=== PATIENT | female | born 1945 | race Caucasian/White ===

== ENCOUNTER 2022-09-30 16:38 | Emergency (ER) | payer OTHER ==
[~2022-09-30] VITALS: Ht 167.6 cm; Wt 69.9 kg
[2022-09-30 16:51] VITALS: BP_SYST 144; PULSE 64; RESP 20; TEMP 98.2; O2SAT 98
[2022-09-30 17:49] LABS: BASOPHILS % (AUTO) 0.4 % (0.0-2.0); HEMATOCRIT 41.2 % (36-48); HEMOGLOBIN 13.7 g/dL (12.0-16.0); LYMPHOCYTES # (AUTO) 1.5 K/uL (1.0-5.5); LYMPHOCYTES % (AUTO) 22.2 % (20.5-51.5); MEAN CORPUSCULAR HEMOGLOBIN 31 pg (27-31); MEAN CORPUSCULAR HGB CONC 33 % (32-36); MEAN CORPUSCULAR VOLUME 94 fL (79.0-98.0); MONOCYTES # (AUTO) 0.6 K/uL (0.0-1.0); MONOCYTES % (AUTO) 8.7 % (1.7-9.3); NEUTROPHILS # (AUTO) 4.8 K/uL (1.8-7.7); NEUTROPHILS % (AUTO) 68.7 % (40.0-70.0); PLATELET COUNT (AUTO) 189 K/uL (130-430); RED BLOOD CELL COUNT(AUTO) 4.38 MIL/uL (4.2-6.2); RED CELL DISTRIBUTION WIDTH 14.2 % (9.0-15.0); WHITE BLOOD COUNT (AUTO) 6.9 K/uL (4.8-10.8)
[2022-09-30 18:06] LABS: ANION GAP 7 (5-15); CALCIUM 8.2 mg/dL (8.4-11.0); CHLORIDE 108 mmol/L (98-107); CREATININE 0.76 mg/dL (0.55-1.30); GLUCOSE 138 mg/dL (74-106); UREA NITROGEN, BLOOD 20 mg/dL (8-21)
[2022-09-30 18:07] LABS: PROTHROMBIN TIME 10.3 SECS (9.5-12.5)
[2022-09-30 18:11] LABS: ALANINE AMINOTRANSFERASE 22 U/L (12-78); ALBUMIN 3.3 g/dL (3.4-4.8); ASPARTATE AMINOTRANSFERASE 16 U/L (10-37); TOTAL BILIRUBIN 0.2 mg/dL (0.0-1.0)
[2022-09-30 19:29] VITALS: TEMP 97.8
[2022-09-30] MEDS ORDERED: IBUP-1971 PO (21:18)
[2022-09-30] MEDS ORDERED: DICL20GE TP (21:18)
[2022-09-30 21:35] VITALS: BP_SYST 138; PULSE 59; RESP 18; O2SAT 96
== END 2022-09-30 21:55 | disposition home or self-care (01) ==
LOC: SED 16:38
DX: S76.301A Unspecified injury of muscle, fascia and tendon of the posterior muscle group at thigh level, right thigh, initial encounter (principal); Z79.899 Other long term (current) drug therapy; X58.XXXA Exposure to other specified factors, initial encounter; Y93.89 Activity, other specified; Y92.89 Other specified places as the place of occurrence of the external cause; Y99.8 Other external cause status
CPT/HCPCS: 36415; 72170-TC; 73552; 73564; 80053; 85025; 85379; 85610-TC; 93970; 99284